=== PATIENT | female | born 1960 | race Caucasian/White ===

== ENCOUNTER → 2019-12-10 16:35 | Outpatient (REF) | payer BC, SELFPAY | LOC: ANHLAB 16:35 | PROVIDERS: PCP Internal Medicine; Visit Provider Nurse Practitioner | DX: C44.519 Basal cell carcinoma of skin of other part of trunk (principal) | CPT/HCPCS: 88305 ==

== ENCOUNTER → 2020-01-14 07:57 | Outpatient (REF) | payer BC, SELFPAY | LOC: ANHLAB 07:57 | PROVIDERS: PCP Internal Medicine; Visit Provider Nurse Practitioner | DX: C44.519 Basal cell carcinoma of skin of other part of trunk (principal) | CPT/HCPCS: 88305; 88331 ==

== ENCOUNTER → 2020-07-15 14:33 | Outpatient (REF) | payer BC, SELFPAY | LOC: ANHLAB 14:33 | PROVIDERS: PCP Internal Medicine; Visit Provider Nurse Practitioner | DX: L57.0 Actinic keratosis (principal) | CPT/HCPCS: 88305 ==

== ENCOUNTER → 2020-09-01 07:19 | Outpatient (REF) | payer BC, SELFPAY | LOC: ANHLAB 07:19 | PROVIDERS: PCP Internal Medicine; Visit Provider Nurse Practitioner | DX: C44.521 Squamous cell carcinoma of skin of breast (principal); C44.629 Squamous cell carcinoma of skin of left upper limb, including shoulder; C44.729 Squamous cell carcinoma of skin of left lower limb, including hip | CPT/HCPCS: 88305; 88331 ==

== ENCOUNTER → 2022-02-04 08:40 | Outpatient (REF) | payer BC, SELFPAY | LOC: ANHLAB 08:40 | PROVIDERS: Visit Provider Nurse Practitioner | DX: C44.622 Squamous cell carcinoma of skin of right upper limb, including shoulder (principal) | CPT/HCPCS: 88305 ==

== ENCOUNTER → 2022-03-22 07:27 | Outpatient (REF) | payer BC, SELFPAY | LOC: ANHLAB 07:27 | PROVIDERS: Visit Provider Surgery Plastic and Reconstructive Surgery | DX: C44.622 Squamous cell carcinoma of skin of right upper limb, including shoulder (principal) | CPT/HCPCS: 88305; 88331 ==

== ENCOUNTER 2022-11-16 16:16 | Outpatient (NON) | payer BC, SELFPAY | END 2022-11-16 16:17 | disposition home or self-care (01) | LOC: ANHLAB 11-17 16:19 | PROVIDERS: Visit Provider Nurse Practitioner | DX: L81.4 Other melanin hyperpigmentation (principal) | CPT/HCPCS: 88305 ==

== ENCOUNTER 2023-06-01 13:31 | Emergency (ER) | payer OTHER, SELFPAY ==
[2023-06-01] VITALS (11 sets, daily range): BP systolic 111–178; BP diastolic 49–87; PULSE 86–95; RESP 12–36; TEMP 36.6; O2SAT 74–100
--- NOTE | ~2023-06-01 | CT_ITS ---
EXAMINATION: CT abdomen pelvis w con DATE: 06/01/2023 14:48 INDICATION: Right lower quadrant pain TECHNIQUE: Computed tomography (CT) of the abdomen and pelvis was performed with 100 cc Omnipaque 350 intravenous contrast. The dose-length product was 644.36 mGy-cm. Automated exposure control and iter ative reconstruction technique were employed. COMPARISON: CT dated 05/12/2015 FINDINGS: There is dependent atelectasis. Borderline heart size. No significant pleural or pericardia l effusion. Moderate size hiatal hernia. The liver, spleen, pancreas, adrenal glands and left kidney are unremarkable. There is mild right perinephric and periureteral edema with moderate hydroureterone phrosis secondary to obstructing 3 mm right UVJ stone. Bladder is unremarkable. Gallbladder is presen t. Nonobstructing right nephrolithiasis. Mildly prominent appendix, although there is gas throughout the appendix, likely normal variant. No significant surrounding inflammatory change. No vascular abno rmality. No lymphadenopathy. IMPRESSION: 1. Right UVJ stone measuring 3 mm with moderate hydronephrosis. Reviewed, dictated and finalized at location A.
--- NOTE | 2023-06-01 13:42 | ECG_ITS ---
Measurements Intervals [place] Rate: 92 P: -6 NH: 155 QRS: 11 QRSD: 97 T: 56 QT: 398 QTc: 493 Interpretive Statements SINUS RHYTHM RSR' IN V1 OR V2, PROBABLY NORMAL VARIANT BASELINE ARTIFACT- I, II, III, AVR, AVL, AVF, V1-V6 BORDERLINE ECG NO PREVIOUS ECG AVAILABLE FOR COMPARISON Electronically Signed On 06-01-2023 16:11:34 CDT by Joaquin Wade D.O.
[2023-06-01] MEDS: SODIUM CHLORIDE 0.9% IV 2,000 ML 999 ML IV CONT (13:50)
[2023-06-01] MEDS: ONDANSETRON INJ 4 MG/2 ML VIAL IV PUSH (13:53)
[2023-06-01] MEDS: MORPHINE SULFATE (*CRX) 4 MG/ML INJ IV PUSH (13:55)
[2023-06-01 13:56] LABS: Basophils Percent Auto 0.6 % (0.2-1.2); Eosinophils Absolute Auto 0.1 K/mm3 (0-0.3); Eosinophils Percent Auto 1.3 % (0-4.4); Hematocrit 41.4 % (37.0-47.0); Hemoglobin 13.3 g/dL (12.0-15.0); Immature Granulocyte Absolute 0.02 K/mm3 (0.00-0.031); Immature Granulocyte Percent A 0.4 % (0-0.5); Lymphocytes Percent Auto 42.6 % (18.3-44.2); Mean Corpuscular HGB Conc 32.1 g/dl (32-36); Mean Corpuscular Hemoglobin 29.7 pg (26-34); Mean Corpuscular Volume 92.4 fl (80-100); Mean Platelet Volume 9.7 fl (7.4-10.4); Monocytes Absolute Auto 0.7 K/mm3 (0.1-0.6); Monocytes Percent Auto 13.9 % (2.6-8.5); Neutrophils Absolute Auto 1.9 K/mm3 (1.3-6.7); Neutrophils Percent Auto 41.2 % (45.5-73.1); Platelet Count Result 320 k/mm3 (150-375); Red Blood Count 4.48 M/mm3 (4.2-5.4); Red Cell Distribution Width 12.8 % (11.5-14.5); White Blood Count 4.7 K/mm3 (4.5-10.0)
[2023-06-01 14:07] LABS: Alanine Aminotransferase 34 U/L (6-35); Albumin Level 4.7 g/dL (3.5-5.1); Alkaline Phosphatase 57 U/L (38-126); Anion Gap 12 mmol/L (8-16); Aspartate Amino Transferase 46 U/L (14-36); Bilirubin,Total 0.5 mg/dL (0.2-1.3); Blood Urea Nitrogen 15 mg/dL (7-17); Calcium 9.3 mg/dL (8.4-10.2); Carbon Dioxide 26 mmol/L (22-30); Chloride 101 mmol/L (98-107); Estimated CRCL calculation 56 ml/min; Estimated Glomerular Filt Rate > 60; Glucose 125 mg/dL (65-110); Lipase 117 U/L (23-300); Potassium 3.4 mmol/L (3.4-5.0); Sodium 139 mmol/L (137-145)
[2023-06-01 14:09] LABS: Lactic Acid Reflex 2.4 mmol/L (0.7-2.0)
[2023-06-01 14:10] LABS: INR 0.9; Prothrombin Time 12.2 Seconds (11.1-14.7)
[2023-06-01 15:02] LABS: Appearance Urine Clear (Clear); Bilirubin Urine Negative (Negative); Blood Urine Negative (Negative); Color Urine Yellow (Yellow); Glucose Urine UA Negative (Negative); Ketones Urine Trace mg/dL (Negative); Leukocyte Esterase Ur Negative LEU/UL (Negative); Nitrate Urine Negative (Negative); Protein Urine Negative (Negative); Specific Grav Ur 1.012 (1.001-1.035); Urobilinogen Urine 0.2 mg/dL (<2.0)
[2023-06-01 15:16] LABS: Add Urine Microscopic? NO
--- NOTE | 2023-06-01 15:39 | ED.ABDPAIN ---
HPI - Abdominal Pain General Chief Complaint: Abdominal Pain Stated Complaint: abd pain Time Seen by Provider: 06/01/23 13:38 History of Present Illness HPI narrative: This is a 63-year-old female, with past history of squamous cell carcinomas of the skin, who is brought in by EMS for sudden onset right lower quadrant abdominal pain. Patient states she was sitting on her desk, when she felt 10/10 sharp and cramping right lower abdominal pain that does not radiate. She denies trauma, fall, chest pain, or bleeding. Related Data Home Medications Medication Instructions Recorded Confirmed duloxetine 30 mg capsule,delayed 30 mg PO DAILY 12/10/19 release (Cymbalta) furosemide 20 mg tablet 20 mg PO QAM 12/10/19 mometasone-formoterol HFA 50 mcg-5 inhalation inhalation 12/10/19 mcg/actuation aerosol inhaler (Dulera) sulfasalazine 500 mg tablet 0.5 gm PO BID 12/10/19 tofacitinib 5 mg tablet (Xeljanz) 5 mg PO BID 12/10/19 bimatoprost 0.01 % eye drops 1 drp EACH EYE 01/22/21 cyclobenzaprine 10 mg tablet 10 mg PO 01/22/21 hydroxychloroquine 200 mg tablet 300 mg PO DAILY 01/22/21 (Plaquenil) levothyroxine 100 mcg tablet 100 mcg PO DAILY 01/22/21 morphine 15 mg tablet,extended ea PO 01/22/21 release Allergies Allergy/AdvReac Type Severity Reaction Status Date / Time azathioprine Allergy Unknown Other Verified 06/01/23 13:41 Review of Systems Review of Systems: CONSTITUTIONAL: Denies fever, chills, or sweats. CARDIOVASCULAR: Denies chest pain, palpitations, or edema. RESPIRATORY: Denies cough or dyspnea. GASTROINTESTINAL: Right lower quadrant abdominal pain, nausea and vomiting denies diarrhea. GENITOURINARY: Denies dysuria or hematuria. SKIN: Denies rash or itching. MUSCULOSKELETAL: Denies back pain, joint pain, or myalgia. NEUROLOGIC: Denies headache, numbness, dizziness, or weakness. PSYCHIATRIC: Denies anxiety or depression. [facility] Past Medical History Medical History (Updated 06/01/23 @ 15:44 by Ti Cooley MD) Asthma BCC (basal cell carcinoma), back Osteoarthritis Rheumatoid arthritis Spinal stenosis Squamous cell carcinoma of forehead Surgical History Surgical History History of section 1983 History of tonsillectomy Family History Family History Mother Hypertension COPD with emphysema Grandparent Heart problem Sibling Tonsil cancer Social History Social History Alcohol intake: never Exam Narrative: GENERAL: Well-developed, well-nourished, appears uncomfortable HEAD: Normocephalic, atraumatic. EYES: PERRLA and EOMI. ENT: Nares clear, no rhinorrhea or epistaxis. Mucous membranes moist. Oropharynx without tonsillar hypertrophy exudate or other lesions. CHEST: Clear to auscultation. No respiratory distress. No wheezes rales or rhonchi HEART: Regular rate and rhythm. No murmur heard. Normal peripheral pulses. ABDOMEN: Soft, tender to palpation in the right lower quadrant, with rebound but no guarding, nondistended, normal active bowel sounds. No CVA tenderness to palpation EXTREMITIES: Normal range of motion. No edema. SKIN: Warm, dry, no rash. NEURO: No focal deficits. Alert and oriented x3. PSYCH: Normal mood and affect. Course Course Emergency Course: 15:42 - CBC unremarkable. Chemistries demonstrated lactic acid elevation of 2.4 but are otherwise unremarkable. UA demonstrates Trace ketones. CT abdomen pelvis demonstrates a 3 mm obstructing stone at the right UVJ without other acute findings. I suspect the patient's pain is related to ureterolithiasis. On reevaluation, the patient states her pain is improved but not resolved. Will treat with Toradol and IV antiemetics and reassess. 16:47 - On reevaluation, the patient states her pain is significantly improved. She
[2023-06-01] MEDS: KETOROLAC 30 MG/ML VIAL (*BKC) IV PUSH (16:03)
[2023-06-01] MEDS: PROCHLORPERAZINE EDISYLATE 10 MG/2 ML VIAL IV PUSH (16:04)
[2023-06-01 16:54] LABS: Reflex Lactic Acid Yes or No Add Lactic
== END 2023-06-01 17:10 | disposition home or self-care (01) ==
PROVIDERS: Emergency Provider Preventive Medicine Aerospace Medicine; PCP Physician Assistant
DX: N13.2 Hydronephrosis with renal and ureteral calculous obstruction (principal); J45.909 Unspecified asthma, uncomplicated; M06.9 Rheumatoid arthritis, unspecified; M19.90 Unspecified osteoarthritis, unspecified site; Z85.828 Personal history of other malignant neoplasm of skin; R94.31 Abnormal electrocardiogram [ECG] [EKG]
CPT/HCPCS: 36415; 74177; 80053; 81003; 83605; 83690; 85025; 85610; 93005; 96361; 96374; 96375; 99284; J0780; J1885; J2270; J2405; J7030; Q9967

== ENCOUNTER 2023-11-14 07:00 | Outpatient (NON) | payer BC, SELFPAY | END 2023-11-14 07:01 | disposition home or self-care (01) | LOC: ANHLAB 11-16 14:23 | PROVIDERS: PCP Physician Assistant; Visit Provider Nurse Practitioner | DX: C44.329 Squamous cell carcinoma of skin of other parts of face (principal); C44.629 Squamous cell carcinoma of skin of left upper limb, including shoulder; L81.4 Other melanin hyperpigmentation | CPT/HCPCS: 88305 ==

== ENCOUNTER 2024-05-22 11:55 | Outpatient (CLI) | payer BC, SELFPAY ==
--- NOTE | ~2024-05-22 | XR_ITS ---
XR abdomen/kub 1V Ordering provider: Cam Yuen MD History: . RT URETERAL STONE . Comparison: None. FINDINGS: BOWEL: Nonobstructive bowel gas pattern. ORGANOMEGALY: None. SIGNIFICANT PATHOLOGIC CALCIFICATIONS: None. OTHER: No free air is seen under the diaphragm. Bilateral sacroiliacs. Bilateral hip osteoarthritic changes more on the right side. Minimal degenerat sravani changes in the lower spine. IMPRESSION: NO ACUTE ABDOMINAL FINDINGS. Reviewed, dictated and finalized at location A.
--- NOTE | ~2024-05-22 | CT_ITS ---
EXAMINATION: CT abdomen pelvis wo con DATE: 05/22/2024 12:16 INDICATION: Right ureteral stone TECHNIQUE: Computed tomography (CT) of the abdomen and pelvis was performed without intravenous contr ast. Automated exposure control and iterative reconstruction technique were employed. The dose-length product was 196.04 mGy-cm. COMPARISON: 06/01/2023 FINDINGS: Mild discoid atelectasis at the lingula and right middle lobe. Heart size is normal. Atherosclerotic coronary artery calcifications. No pericardial or pleural effusion. Small sliding-type hiatal hernia. Liver, gallbladder, pancreas and bilateral adrenal glands are normal. No significant change in mild dilation of the common bile duct which measures up to 8 mm in diameter. No intrahepatic biliary ducta l dilation. No evident obstructing stone or mass at the distal duct which passes between the duodenum and a 2.5 x 1.7 cm gas and debris-filled duodenal diverticulum arising from the second portion of th e duodenum. Splenic calcifications consistent with old granulomatous disease. Bilateral nonobstructin g nephrolithiasis with 1 mm stone at the lower pole the right kidney and a couple stones at a lower p ole calyx of the left kidney the larger measuring 2 to 3 mm. No ureteral stones or hydronephrosis. Pa rtially decompressed bladder is normal. The uterus is not identified and has likely been surgically r esected. Bowels including the appendix are normal. No free intraperitoneal gas or fluid. No pathologi сергей enlarged abdominal or pelvic lymphadenopathy. IMPRESSION: 1. Bilateral nonobstructing nephrolithiasis. No ureteral stones or hydronephrosis. 2. Unchanged mild dilation of the common bile duct which measures up to 8 mm without intrahepatic patricia iary ductal dilation and with normal-appearing gallbladder. Correlate with liver function tests and c ould consider MRCP for further evaluation as clinically indicated. 3. Small sliding-type hiatal hernia. Reviewed, dictated and finalized at location A. IMPRESSION: 1. Bilateral nonobstructing nephrolithiasis. No ureteral stones or hydronephros is. 2. Unchanged mild dilation of the common bile duct which measures up to 8 mm wi thout intrahepatic biliary ductal dilation and with normal-appearing gallbladde r. Correlate with liver function tests and could consider MRCP for further eval uation as clinically indicated. 3. Small sliding-type hiatal hernia.
== END 2024-05-22 11:56 | disposition home or self-care (01) ==
PROVIDERS: PCP Physician Assistant; Visit Provider Urology
DX: N20.1 Calculus of ureter (principal); K44.9 Diaphragmatic hernia without obstruction or gangrene
CPT/HCPCS: 74018; 74176